=== PATIENT | female | born 1955 | race Asian ===

== ENCOUNTER 2022-01-23 06:29 | Day surgery (SDC) | payer MEDICAID ==
[~2022-01-23] VITALS: Ht 157.5 cm; Wt 54.4 kg
[2022-01-23] MEDS ORDERED: SIMETHICONE 40 MG/0.6 ML ML ONE (07:09)
[2022-01-23] MEDS ORDERED: fentaNYL CITRATE/PF 100 MCG/2 ML AMP ONE (07:10)
[2022-01-23] MEDS ORDERED: MIDAZOLAM HCL 5 MG/5 ML VIAL ONE (07:10)
[2022-01-23 08:40] VITALS: BP_SYST 114
== END 2022-01-23 09:40 | disposition home or self-care (01) ==
LOC: SDS 06:29 → SMU 06:30 → SDS 09:40
PROVIDERS: ATTEND Internal Medicine
DX: Z12.11 Encounter for screening for malignant neoplasm of colon (principal); E11.9 Type 2 diabetes mellitus without complications; D13.5 Benign neoplasm of extrahepatic bile ducts; Z85.3 Personal history of malignant neoplasm of breast; Z20.822 Contact with and (suspected) exposure to COVID-19
CPT/HCPCS: 36415 ×2; 45378; 87426; 87635; 99152; G0378; J2250; J3010